=== PATIENT | female | born 1955 | race Hispanic/Latino ===

== ENCOUNTER 2017-04-15 11:16 | Emergency (ER) | payer MEDICAID ==
[2017-04-15 11:27] VITALS: BP 113/67; PULSE 66; RESP 20; TEMP 98; O2SAT 95
--- NOTE | 2017-04-15 11:31 | C.PDOC ---
History Of Present Illness 62 y/o female presents to ED requesting medication refill. Patient states she has an appointment at Clinic on 05/03/17 but has only 3 day supply left of medication. At ED patient is asymptomatic and denies any physical complaints. REQUESTING MED REFILL. PENDING CLINIC APPT 05/03 BUT HAS ONLY 3 DAYS LEFT. CURRENTLY ASYMPT. EXAM NEG Time Seen by Provider: 04/15/17 11:21 History Per: Patient History/Exam Limitations: no limitations Onset/Duration Of Symptoms: Days Current Symptoms Are (Timing): Gone Past Medical History Reviewed: Historical Data, Nursing Documentation, Vital Signs Vital Signs: Last Vital Signs Temp 98 F 04/15/17 11:26 Pulse 66 04/15/17 11:26 Resp 20 04/15/17 11:26 BP 113/67 04/15/17 11:26 Pulse Ox 95 04/15/17 12:59 - Medical History PMH: Back Problems, HTN Family History: States: No Known Family Hx - Social History Hx Tobacco Use: Yes (1 ppd) Hx Alcohol Use: Yes (socially) Hx Substance Use: No - Immunization History Hx Tetanus Toxoid Vaccination: No Hx Influenza Vaccination: Yes Hx Pneumococcal Vaccination: No Review Of Systems Except As Marked, All Systems Reviewed And Found Negative. Constitutional: Negative for: Fever, Chills Respiratory: Negative for: Cough, Shortness of Breath Gastrointestinal: Negative for: Nausea, Vomiting Skin: Negative for: Rash Neurological: Negative for: Weakness, Numbness Physical Exam - Physical Exam Appears: Non-toxic, No Acute Distress Skin: Normal Color, Warm, Dry, No Rash Head: Atraumatic, Normacephalic Eye(s): bilateral: Normal Inspection, EOMI Nose: Normal Oral Mucosa: Moist Throat: Normal, No Erythema Neck: Normal ROM, Supple Chest: Symmetrical Cardiovascular: Rhythm Regular Respiratory: No Rales, No Rhonchi, No Wheezing Neurological/Psych: Oriented x3, Normal Speech, Normal Cognition ED Course And Treatment O2 Sat by Pulse Oximetry: 95 (RA) Pulse Ox Interpretation: Normal Disposition Counseled Patient/Family Regarding: Diagnosis, Need For Followup, Rx Given - Disposition Referrals: [facility] [Outside] [facility] [Outside] Disposition: HOME/ ROUTINE Disposition Time: 11:29 Condition: GOOD Additional Instructions: FOLLOW UP CLINIC SCHEDULED Prescriptions: amLODIPine [Norvasc] 10 mg PO DAILY #30 tab Cyclobenzaprine [Flexeril] 5 mg PO TID #90 tab Metoprolol Tartrate [Lopressor] 50 mg PO BID #60 tab Instructions: Medicine Refill (ED) Forms: [employer] (Algerian) - Clinical Impression Clinical Impression: Medication refill - PA / TEST AND RESEARCH REACTOR OPERATOR / Resident Statement MD/DO has examined the patient and agrees with the treatment plan. - Scribe Statement The provider has reviewed the documentation as recorded by the Doyle Louise All medical record entries made by the Peymanibzeyad were at my direction and personally dictated by me. I have reviewed the chart and agree that the record accurately reflects my personal performance of the history, physical exam, medical decision making, and the department course for this patient. I have also personally directed, reviewed, and agree with the discharge instructions and disposition.
== END 2017-04-15 11:44 | disposition home or self-care (01) ==
LOC: C.ER 11:16
DX: Z76.0 Encounter for issue of repeat prescription (principal)

== ENCOUNTER 2017-05-24 15:16 | Emergency (ER) | payer MEDICAID ==
[2017-05-24 15:31] VITALS: O2SAT 96
--- NOTE | 2017-05-24 16:34 | C.PDOC ---
History Of Present Illness Lizzeth Vides is a 62 year old female who presents to the emergency department for refill of medication after she ran out yesterday. Patient denies any fever, chills, nausea or vomit. No further medical complaints. PMD: None provided. Time Seen by Provider: 05/24/17 16:16 Chief Complaint (Nursing): Med Refill History Per: Patient History/Exam Limitations: no limitations Onset/Duration Of Symptoms: Days (x1) Past Medical History Reviewed: Historical Data, Nursing Documentation, Vital Signs Vital Signs: Last Vital Signs Temp 98.0 F 05/24/17 16:41 Pulse 80 05/24/17 16:41 Resp 14 05/24/17 16:41 BP 121/71 05/24/17 16:41 Pulse Ox 96 05/24/17 16:41 - Medical History PMH: Back Problems, HTN Family History: States: Unknown Family Hx - Social History Hx Tobacco Use: Yes (1 ppd) Hx Alcohol Use: Yes (socially) Hx Substance Use: No - Immunization History Hx Tetanus Toxoid Vaccination: No Hx Influenza Vaccination: Yes Hx Pneumococcal Vaccination: No Review Of Systems Except As Marked, All Systems Reviewed And Found Negative. Constitutional: Negative for: Fever, Chills Gastrointestinal: Negative for: Nausea, Vomiting Physical Exam - Physical Exam Appears: Well, No Acute Distress Skin: Normal Color, Warm, Dry Eye(s): bilateral: Normal Inspection Neck: Normal, Normal ROM Respiratory: Normal Breath Sounds Back: Normal Inspection, No CVA Tenderness, No Vertebral Tenderness Extremity: Normal ROM, No Pedal Edema, No Deformity, No Swelling Neurological/Psych: Normal Speech, Normal Motor, Normal Sensation ED Course And Treatment O2 Sat by Pulse Oximetry: 96 (RA) Pulse Ox Interpretation: Normal Medical Decision Making Medical Decision Making: med refills Disposition Doctor Will See Patient In The: Office Counseled Patient/Family Regarding: Studies Performed, Diagnosis - Disposition Referrals: [facility] [Outside] [facility] [Outside] Disposition: HOME/ ROUTINE Disposition Time: 16:34 Condition: GOOD Additional Instructions: follow-up in our Clinic in 2-3 months for BP check and med refills. Prescriptions: amLODIPine [Norvasc] 10 mg PO DAILY #30 tab Cyclobenzaprine [Cyclobenzaprine HCl] 10 mg PO Q8H PRN #90 tab PRN Reason: Muscle Spasm Metoprolol Tartrate [Lopressor] 50 mg PO BID #60 tab Instructions: Medicine Refill (ED) Forms: [employer] (South Korean) - Clinical Impression Clinical Impression: Medication refill - Scribe Statement The provider has reviewed the documentation as recorded by the Doyle Stone Provider Attestation: All medical record entries made by the Peymanibe were at my direction and personally dictated by me. I have reviewed the chart and agree that the record accurately reflects my personal performance of the history, physical exam, medical decision making, and the department course for this patient. I have also personally directed, reviewed, and agree with the discharge instructions and disposition.
[2017-05-24 16:42] VITALS: BP 121/71; PULSE 80; RESP 14; TEMP 98
== END 2017-05-24 17:00 | disposition home or self-care (01) ==
LOC: C.ER 15:16
DX: Z76.0 Encounter for issue of repeat prescription (principal)

== ENCOUNTER 2018-03-15 15:48 | Emergency (ER) | payer MEDICAID ==
[2018-03-15 15:53] VITALS: BMI 27.8
--- NOTE | 2018-03-15 16:08 | C.PDOC ---
History Of Present Illness 63 year old female presents to the ED requesting a medication refill. Patient reports she took her last dose of medication yesterday. She has an appointment with her PMD in 2 days. Patient has no physical complaints. Time Seen by Provider: 03/15/18 15:59 Chief Complaint (Nursing): Med Refill History Per: Patient History/Exam Limitations: no limitations Past Medical History Reviewed: Historical Data, Nursing Documentation, Vital Signs Vital Signs: Last Vital Signs Temp 98.8 F 03/15/18 15:53 Pulse 105 H 03/15/18 15:53 Resp 18 03/15/18 16:40 BP 131/76 03/15/18 15:53 Pulse Ox 96 03/15/18 17:59 - Medical History PMH: Back Problems, HTN Surgical History: No Surg Hx Family History: States: No Known Family Hx - Social History Hx Tobacco Use: Yes (1 ppd) Hx Alcohol Use: Yes Hx Substance Use: No - Immunization History Hx Tetanus Toxoid Vaccination: No Hx Influenza Vaccination: No Hx Pneumococcal Vaccination: No Review Of Systems Except As Marked, All Systems Reviewed And Found Negative. Physical Exam - Physical Exam Appears: Non-toxic, No Acute Distress Skin: Warm, Dry, No Rash Head: Atraumatic Eye(s): bilateral: Normal Inspection Nose: Normal Oral Mucosa: Moist Neck: Normal ROM Chest: Symmetrical Extremity: Normal ROM Neurological/Psych: Oriented x3, Normal Speech Gait: Steady ED Course And Treatment O2 Sat by Pulse Oximetry: 96 (RA) Pulse Ox Interpretation: Normal Progress Note: Patient instructed to follow up with within 2-3 days. Return to ED if feel worse. Patient given Rx for Flexeril, Metoprolol, and Norvasc. Disposition - Disposition Referrals: Alfreda Rios MD [Staff Provider] - Disposition: HOME/ ROUTINE Disposition Time: 16:08 Condition: STABLE Additional Instructions: Follow up with within 2-3 days. Return to ED if feel worse. Prescriptions: Cyclobenzaprine [Flexeril] 5 mg PO TID #90 tab Metoprolol Tartrate 50 mg PO BID #60 tablet amLODIPine [Norvasc] 5 mg PO TID #60 tab Instructions: Medication Safety, Adult Forms: [employer] (Welsh) - Clinical Impression Clinical Impression: Medication refill - PA / PROPAGATION WORKER / Resident Statement MD/DO has reviewed & agrees with the documentation as recorded. - Scribe Statement The provider has reviewed the documentation as recorded by the Scribe Jessica Caraballo All medical record entries made by the Doyle were at my direction and personally dictated by me. I have reviewed the chart and agree that the record accurately reflects my personal performance of the history, physical exam, medical decision making, and the department course for this patient. I have also personally directed, reviewed, and agree with the discharge instructions and disposition.
[2018-03-15 16:22] VITALS: BP 131/76; PULSE 105; RESP 18; TEMP 98.8; O2SAT 96
== END 2018-03-15 16:40 | disposition home or self-care (01) ==
LOC: C.ER 15:48
DX: Z76.0 Encounter for issue of repeat prescription (principal)

== ENCOUNTER 2018-04-17 17:12 | Emergency (ER) | payer MEDICAID ==
[2018-04-17 17:13] VITALS: BMI 27.8
[2018-04-17 17:34] VITALS: BP 148/82; PULSE 76; RESP 18; TEMP 98.8; O2SAT 95
--- NOTE | 2018-04-17 17:43 | C.PDOC ---
History Of Present Illness 63 year old female presents to the ED requesting medication refills. Patient reports she was unable to schedule appointment for the clinic and has last doses today. Patient has no physical complaints. Time Seen by Provider: 04/17/18 17:37 Chief Complaint (Nursing): Med Refill History Per: Patient History/Exam Limitations: no limitations Onset/Duration Of Symptoms: Days Current Symptoms Are (Timing): Still Present Recent travel outside of the [place]: No Past Medical History Reviewed: Historical Data, Nursing Documentation, Vital Signs Vital Signs: Last Vital Signs Temp 98.8 F 04/17/18 17:31 Pulse 76 04/17/18 17:31 Resp 18 04/17/18 18:06 BP 148/82 04/17/18 17:31 Pulse Ox 95 04/17/18 18:33 - Medical History PMH: Back Problems, HTN Family History: States: Unknown Family Hx - Social History Hx Tobacco Use: Yes (1 ppd) Hx Alcohol Use: Yes (socially) Hx Substance Use: No - Immunization History Hx Tetanus Toxoid Vaccination: No Hx Influenza Vaccination: Yes Hx Pneumococcal Vaccination: No Review Of Systems Constitutional: Negative for: Fever, Chills Cardiovascular: Negative for: Chest Pain, Palpitations Respiratory: Negative for: Cough, Shortness of Breath Gastrointestinal: Negative for: Nausea, Vomiting, Abdominal Pain Physical Exam - Physical Exam Appears: Non-toxic Skin: Normal Color, Warm, Dry Head: Atraumatic, Normacephalic Eye(s): bilateral: Normal Inspection Neck: Normal ROM Chest: Symmetrical, No Tenderness Respiratory: No Stridor, No Wheezing Extremity: Bilateral: Atraumatic, Normal ROM Neurological/Psych: Oriented x3, Normal Speech ED Course And Treatment O2 Sat by Pulse Oximetry: 95 Medical Decision Making Medical Decision Making: Patient instructed to follow up with within 2-3 days. Return to ED if feel worse. Patient given Rx for Flexeril, Metoprolol, and Norvasc. Disposition Counseled Patient/Family Regarding: Diagnosis, Need For Followup, Rx Given - Disposition Referrals: Alfreda Rios MD [Staff Provider] - Disposition: HOME/ ROUTINE Disposition Time: 18:00 Condition: GOOD Additional Instructions: We have courteously refilled your medications for you. We give short supply and it is important that you follow up with your doctor or clinic for further care and medication refills. Prescriptions: amLODIPine [Norvasc] 10 mg PO DAILY #30 tab Cyclobenzaprine [Flexeril] 5 mg PO TID PRN #60 tab PRN Reason: Muscle Spasm Metoprolol Tartrate 50 mg PO BID #60 tablet Instructions: Medicines for High Blood Pressure Forms: [employer] (Anguillan) - POA Present On Arrival: None - Clinical Impression Clinical Impression: Medication refill - PA / MARKETING SYSTEMS ANALYST / Resident Statement MD/DO has reviewed & agrees with the documentation as recorded. - Scribe Statement The provider has reviewed the documentation as recorded by the Scribzeyad Tamez All medical record entries made by the Doyle were at my direction and personally dictated by me. I have reviewed the chart and agree that the record accurately reflects my personal performance of the history, physical exam, medical decision making, and the department course for this patient. I have also personally directed, reviewed, and agree with the discharge instructions and disposition.
== END 2018-04-17 18:07 | disposition home or self-care (01) ==
LOC: C.ER 17:12
DX: Z76.0 Encounter for issue of repeat prescription (principal); I10 Essential (primary) hypertension; F17.210 Nicotine dependence, cigarettes, uncomplicated

== ENCOUNTER 2018-06-03 13:48 | Observation (INO) | payer MEDICAID ==
[2018-06-03 13:48] VITALS: BMI 27.8
[2018-06-03] MEDS ORDERED: Sodium Chloride 0.9% 1,000 ML IV ONE (16:13)
[2018-06-03 16:21] LABS: BASO # 0.1 K/uL (0.0-0.2); BASO % 0.3 % (0.0-2.0); EOS % 0.1 % (0.0-4.0); HEMOGLOBIN 16.5 g/dL (11.0-16.0); LYMPH # 1.2 K/uL (1.0-4.3); LYMPH % 5.7 % (20.0-40.0); MEAN CELL VOLUME 91.6 fL (81.0-99.0); MEAN CORPUSCULAR HEMOGLOBIN 31.8 pg (27.0-31.0); MEAN CORPUSCULAR HGB CONC 34.7 g/dL (33.0-37.0); MONO # 0.8 K/uL (0.0-0.8); MONO % 3.6 % (0.0-10.0); NEUT # 19.6 K/uL (1.8-7.0); NEUT % 90.3 % (50.0-75.0); PLATELET COUNT 308 K/uL (130-400); RBC 5.19 Mil/uL (3.80-5.20); RED CELL DISTRIBUTION WIDTH 13.7 % (11.5-14.5); WHITE BLOOD COUNT 21.6 K/uL (4.8-10.8)
[2018-06-03] MEDS ORDERED: Iohexol 240 (50 ml) PO STA (16:25)
[2018-06-03] MEDS ORDERED: Piperacillin/Tazobact 3.375 gm 100 ML IV STA (16:29)
[2018-06-03] MEDS ORDERED: Sodium Chloride 0.9% 1,000 ML ONE (16:30)
[2018-06-03 16:37] LABS: ALB/GLOB RATIO 1.4 (1.0-2.1); ALT/SGPT 26 U/L (9-52); AST/SGOT 31 U/L (14-36); BLOOD UREA NITROGEN 25 mg/dL (7-17); GFR NON-AFRICAN AMERICAN 56; LIPASE 86 U/L (23-300)
[2018-06-03 16:40] LABS: SQUAMOUS EPITHIAL 10 /hpf (0-5); URINE BILIRUBIN 1+ (NEGATIVE); URINE BLOOD 2+ (NEGATIVE); URINE CLARITY Hazy (Clear); URINE COLOR Amber (YELLOW); URINE GLUCOSE (UA) NORMAL (Normal); URINE HYALINE CAST >20 /lpf (0-2); URINE LEUKOCYTE ESTERASE 1+ Leu/uL (Negative); URINE PROTEIN 2+ mg/dL (NEGATIVE)
[2018-06-03] MEDS ORDERED: Iodixanol 320 MG/ML 100 ML BOTTLE IV ONE (17:14)
[2018-06-03] MEDS ORDERED: Piperacillin/Tazobact 3.375 gm 100 ML IVPB ONE (17:22)
[2018-06-03 17:34] LABS: BANDS 2 % (0-2); LYMPHOCYTE 3 % (20-40); MONOCYTE 5 % (0-10); NEUTROPHIL 90 % (50-75); PLATELET ESTIMATE NORMAL (NORMAL); TOTAL CELLS COUNTED 100
[2018-06-03 17:40] LABS: MICROCYTOSIS SLIGHT
--- NOTE | 2018-06-03 17:44 | C.PDOC ---
History Of Present Illness 63 year old female with PMH HTN presents to the ED for evaluation of left-sided abdominal pain associated with nausea and vomiting since yesterday. Pt tried peptobismol without relief. Pt admits to h/o peptic ulcer 30 yrs ago . No h/o colonoscopy. Patient denies fever, chills, dysuria, hematuria, melena, weight loss, sick contacts. Time Seen by Provider: 06/03/18 15:17 Chief Complaint (Nursing): Abdominal Pain History Per: Patient History/Exam Limitations: no limitations Onset/Duration Of Symptoms: Hrs Current Symptoms Are (Timing): Still Present Radiation Of Pain To:: None Quality Of Discomfort: "Pain" Associated Symptoms: Nausea, Vomiting. denies: Fever, Chills, Urinary Symptoms Past Medical History Reviewed: Historical Data, Nursing Documentation, Vital Signs Vital Signs: Last Vital Signs Temp 98.6 F 06/03/18 14:34 Pulse 77 06/03/18 14:34 Resp 20 06/03/18 14:34 BP Pulse Ox 98 06/03/18 14:34 - Medical History PMH: Back Problems, HTN Surgical History: No Surg Hx Family History: States: Unknown Family Hx - Social History Hx Tobacco Use: Yes (1 ppd) Hx Alcohol Use: Yes Hx Substance Use: No - Immunization History Hx Tetanus Toxoid Vaccination: No Hx Influenza Vaccination: No Hx Pneumococcal Vaccination: No Review Of Systems Constitutional: Negative for: Fever, Chills Gastrointestinal: Positive for: Nausea, Vomiting, Abdominal Pain (left-sided ) Genitourinary: Negative for: Dysuria, Frequency, Hematuria Physical Exam - Physical Exam Appears: Non-toxic, Other (appears uncomfortable, actively vomiting ) Skin: Normal Color, Warm, Dry Head: Atraumatic, Normacephalic Eye(s): bilateral: Normal Inspection, EOMI Nose: Normal Oral Mucosa: Moist Neck: Normal ROM, Supple Chest: Symmetrical, No Deformity, No Tenderness Cardiovascular: Rhythm Regular Respiratory: Normal Breath Sounds, No Rales, No Rhonchi, No Wheezing Gastrointestinal/Abdominal: Soft, Tenderness (left-sided ), No Guarding, No Rebound Extremity: Normal ROM, Capillary Refill (less than 2 seconds ) Neurological/Psych: Oriented x3, Normal Speech, Normal Cognition ED Course And Treatment - Laboratory Results Result Diagrams: 06/04/18 13:55 06/04/18 08:07 O2 Sat by Pulse Oximetry: 98 (on RA) Pulse Ox Interpretation: Normal - CT Scan/US CT A/P Other Rad Studies (CT/US): Read By Radiologist, Radiology Report Reviewed CT/US Interpretation: PROCEDURE: CT Abdomen and Pelvis with contrast. HISTORY: pain. COMPARISON: None available. TECHNIQUE: Contrast dose: 100 mL Vi sipaque 320. Radiation dose: Total exam DLP = 713.16 mGy-cm. This CT exam was performed using one or more of the following dose reduction techniques: Automated exposure control, adjustment of the mA and/or kV according to patient size, and/or use of iterative reconstruction technique. FINDINGS: LOWER THORAX: Minimal atelectasis, lingula. No visible pleural effusion or pneumothorax. Small hiatal hernia/distal esophageal wall thickening. LIVER: Unremarkable. GALLBLADDER AND BILE DUCTS: Unremarkable. PANCREAS: Unremarkable. SPLEEN: Unremarkable. ADRENALS: Unremarkable. KIDNEYS AND URETERS: The kidneys enhance symmetrically. No hydronephrosis or obstructing calculus identified. VASCULATURE: Atherosclerotic calcifications of the aorta. No aortic aneurysm. BOWEL: Stomach is nondistended. Severe gastric wall thickening. Appearance worrisome for gastritis. Lack of oral contrast limits evaluation for bowel pathology. Bowel loops appear within normal limits of caliber without evidence of obstruction. Diverticulosis without CT evidence of acute diverticulitis. APPENDIX: The appendix appears within normal limits of caliber. No secondary signs of acute appendicitis. PERITONEUM: No significant free fluid. No definite free air. LYMPH NODES: No bulky adenopathy identified. BLADDER: Under distention of the urinary bladder limits evaluation. REPRODUCTIVE: The uterus is present. BONES: Degenerative changes of the spine. OTHER FINDINGS: None. IMPRESSION: Severe gastric wall thickening; appearance worrisome for gastritis. Neoplasm cannot be excluded. Correlate clinically. Small hiatal hernia/distal esophageal wall thickening. Minimal atelectasis, partially imaged lingula. Diverticulosis without CT evidence of acute diverticulitis. Progress Note: Bloodwork, urinalysis, CT A/P ordered and reviewed. Toradol IVP, Zofran IVP, Protonix IVP, Zosyn IVP, and IV Fluids given. Case discussed with Dr Palumbo, agreed upon plan and admission. Case discussed with Dr Abreu, agreed upon admission, instructs GI consult with Dr Szymanski. Disposition - Disposition Disposition: HOSPITALIZED Disposition Time: 17:00 Condition: STABLE - Clinical Impression Clinical Impression: Leukocytosis, Gastritis - PA / PRODUCT CONSULTANT / Resident Statement MD/DO has reviewed & agrees with the documentation as recorded. - Scribe Statement The provider has reviewed the documentation as recorded by the Scribe (Christiana Abreu) All medical record entries made by the Scribe were at my direction and personally dictated by me. I have reviewed the chart and agree that the record accurately reflects my personal performance of the history, physical exam, medical decision making, and the department course for this patient. I have also personally directed, reviewed, and agree with the discharge instructions and disposition.
[2018-06-03 17:47] LABS: LARGE PLATELETS PRESENT
--- NOTE | 2018-06-03 17:47 | CT ---
Date of service: 06/03/2018 PROCEDURE: CT Abdomen and Pelvis with contrast HISTORY: pain COMPARISON: None available. TECHNIQUE: Contrast dose: 100 mL Visipaque 320 Radiation dose: Total exam DLP = 713.16 mGy-cm. This CT exam was performed using one or more of the following dose reduction techniques: Automated exposure control, adjustment of the mA and/or kV according to patient size, and/or use of iterative reconstruction technique. FINDINGS: LOWER THORAX: Minimal atelectasis, lingula. No visible pleural effusion or pneumothorax. Small hiatal hernia/distal esophageal wall thickening. LIVER: Unremarkable. GALLBLADDER AND BILE DUCTS: Unremarkable. PANCREAS: Unremarkable. SPLEEN: Unremarkable. ADRENALS: Unremarkable. KIDNEYS AND URETERS: The kidneys enhance symmetrically. No hydronephrosis or obstructing calculus identified. VASCULATURE: Atherosclerotic calcifications of the aorta. No aortic aneurysm. BOWEL: Stomach is nondistended. Severe gastric wall thickening. Appearance worrisome for gastritis. Lack of oral contrast limits evaluation for bowel pathology. Bowel loops appear within normal limits of caliber without evidence of obstruction. Diverticulosis without CT evidence of acute diverticulitis. APPENDIX: The appendix appears within normal limits of caliber. No secondary signs of acute appendicitis. PERITONEUM: No significant free fluid. No definite free air. LYMPH NODES: No bulky adenopathy identified. BLADDER: Under distention of the urinary bladder limits evaluation. REPRODUCTIVE: The uterus is present. BONES: Degenerative changes of the spine. OTHER FINDINGS: None. IMPRESSION: Severe gastric wall thickening; appearance worrisome for gastritis. Neoplasm cannot be excluded. Correlate clinically. Small hiatal hernia/distal esophageal wall thickening. Minimal atelectasis, partially imaged lingula. Diverticulosis without CT evidence of acute diverticulitis.
[2018-06-03] MEDS ORDERED: metroNIDAZOLE IV 500 mg/100 ml 500 MG/100 ML BAG ONE (21:14)
--- NOTE | 2018-06-03 21:36 | CP.PCM.HP ---
Past Patient History - Infectious Disease Hx of Infectious Diseases: None - Past Social History Smoking Status: Heavy Smoker > 10 Cigarettes Daily - CARDIAC Hx Hypertension: Yes - MUSCULOSKELETAL/RHEUMATOLOGICAL Hx Musculoskeletal Disorders: Yes - PSYCHIATRIC Hx Substance Use: No - SURGICAL HISTORY Hx Surgeries: No - ANESTHESIA Hx Anesthesia: No Hx Anesthesia Reactions: No Meds Allergies/Adverse Reactions: Allergies Allergy/AdvReac Type Severity Reaction Status Date / Time No Known Allergies Allergy Verified 06/03/18 14:37 Results - Vital Signs Recent Vital Signs: Last Vital Signs Temp 98.7 F 06/03/18 20:45 Pulse 81 06/03/18 20:45 Resp 16 06/03/18 20:45 BP 146/71 06/03/18 20:45 Pulse Ox 94 L 06/03/18 20:45 - Labs Result Diagrams: 06/03/18 16:18 06/03/18 16:18 Labs: Laboratory Results - last 24 hr 06/03/18 06/03/18 06/03/18 16:18 16:18 16:31 WBC 21.6 H D RBC 5.19 Hgb 16.5 H Hct 47.6 H MCV 91.6 MCH 31.8 H MCHC 34.7 RDW 13.7 Plt Count 308 MPV 8.0 Neut % (Auto) 90.3 H Lymph % (Auto) 5.7 L [place] % (Auto) 3.6 Eos % (Auto) 0.1 Baso % (Auto) 0.3 Neut # (Auto) 19.6 H Lymph # (Auto) 1.2 [place] # (Auto) 0.8 Eos # (Auto) 0.0 Baso # (Auto) 0.1 Neutrophils % (Manual) 90 H Band Neutrophils % 2 Lymphocytes % (Manual) 3 L Monocytes % (Manual) 5 Platelet Estimate Normal Large Platelets Present Microcytosis (manual) Slight Sodium 137 Potassium 3.4 L Chloride 85 L Carbon Dioxide 37 H Anion Gap 18 BUN 25 H Creatinine 1.0 Est GFR ( Amer) > 60 Est GFR (Non-Af Amer) 56 Random Glucose 123 H Calcium 10.0 Total Bilirubin 0.6 AST 31 ALT 26 Alkaline Phosphatase 98 Total Protein 8.5 H Albumin 5.0 Globulin 3.5 Albumin/Globulin Ratio 1.4 Lipase 86 Urine Color Mira Urine Clarity Hazy Urine pH 5.0 Ur Specific [place] 1.025 Urine Protein 2+ H Urine Glucose (UA) Normal Urine Ketones Negative Urine Blood 2+ H Urine Nitrate Negative Urine Bilirubin 1+ H Urine Urobilinogen 2.0 H Ur Leukocyte Esterase 1+ H Urine WBC (Auto) 14 H Urine RBC (Auto) 24 H Ur Squamous Epith Cells 10 H Hyaline Casts >20 H
[2018-06-03] MEDS ORDERED: metroNIDAZOLE IV 500 mg/100 ml 500 MG/100 ML BAG IVPB SCH (22:00)
[2018-06-04] MEDS: Piperacill/Tazo 3.375gm in Dex 3.375 GM/50 ML BAG IVPB SCH ×6 (00:06→23:03)
[2018-06-04] MEDS ORDERED: Ciprofloxacin 400mg/200ml D5W 400 MG/200 ML BAG IVPB SCH (06:00)
[2018-06-04 08:23] LABS: EOS # 0.1 K/uL (0.0-0.7); MEAN PLATELET VOLUME 8.3 fL (7.2-11.7)
[2018-06-04 08:33] LABS: EOS % 0.6 % (0.0-4.0); LYMPH # 0.8 K/uL (1.0-4.3); LYMPH % 5.1 % (20.0-40.0); MEAN CELL VOLUME 91.2 fL (81.0-99.0); MEAN CORPUSCULAR HEMOGLOBIN 31.7 pg (27.0-31.0); MEAN CORPUSCULAR HGB CONC 34.8 g/dL (33.0-37.0); MONO # 0.2 K/uL (0.0-0.8); MONO % 1.3 % (0.0-10.0); NEUT # 14.4 K/uL (1.8-7.0); PLATELET COUNT 227 K/uL (130-400); RBC 4.42 Mil/uL (3.80-5.20); RED CELL DISTRIBUTION WIDTH 13.3 % (11.5-14.5); WHITE BLOOD COUNT 15.5 K/uL (4.8-10.8)
[2018-06-04 09:37] LABS: EOSINOPHIL 1 % (0-4); LYMPHOCYTE 6 % (20-40); MONOCYTE 1 % (0-10); NEUTROPHIL 92 % (50-75); PLATELET ESTIMATE NORMAL (NORMAL); TOTAL CELLS COUNTED 100
[2018-06-04 09:41] LABS: ERYTHROCYTE SEDIMENTATION RATE 25 mm/hr (0-20)
--- NOTE | 2018-06-04 09:48 | CP.PCM.CON ---
<Darren Granados - Last Filed: 06/04/18 11:46> History of Present Illness - History of Present Illness History of Present Illness: PGY6 GI Fellow Consult Note Patient is a 63yo female with PMHx significant for HTN, chronic back pain, PUD with gastric ulcer in the who presented to the hospital with 3 days of abdominal pain, nausea and vomiting. She states pain started suddenly on Saturday. Episodes were mild initially but have progressively worsened in the following days. She presented to the ED when pain became more severe and vomiting had not ceased. She denies any rectal bleeding, melena, hematemesis, fever, chills, weight loss, sick contacts, recent travel. Does admit to frequent NSAID use with regular Advil PM usage before bed for the last 4-5 weeks. In the ED, patient had CT scan which shows significant gastric wall thickening consistent with gastritis. Lab work with leukocytosis/hemoconcentration. 12 system ROS performed and negative except where stated PMHx: See HPI PSHx: Discussed with patient and she denies FHx: Sister - PBC Mother - Scleroderma Social: Denies tobacco, EtOH or illicit drug use Endo: EGD in with gastric ulcer noted Past Patient History - Infectious Disease Hx of Infectious Diseases: None - Past Social History Smoking Status: Heavy Smoker > 10 Cigarettes Daily - CARDIAC Hx Hypertension: Yes - MUSCULOSKELETAL/RHEUMATOLOGICAL Hx Musculoskeletal Disorders: Yes - PSYCHIATRIC Hx Substance Use: No - SURGICAL HISTORY Hx Surgeries: No - ANESTHESIA Hx Anesthesia: No Hx Anesthesia Reactions: No Meds Allergies/Adverse Reactions: Allergies Allergy/AdvReac Type Severity Reaction Status Date / Time No Known Allergies Allergy Verified 06/03/18 14:37 - Medications Medications: Current Medications Amlodipine Besylate (Norvasc) 10 mg PO Q24H [facility] Piperacillin Sod/Tazobactam Sod (Zosyn 3.375 Gm Iv Premix) 3.375 gm in 50 mls @ 100 mls/hr IVPB Q6H [facility]; Protocol Last Admin: 06/04/18 06:05 Dose: 100 mls/hr Metronidazole (Flagyl) 500 mg in 100 mls @ 100 mls/hr IVPB Q8 [facility]; Protocol Metoprolol Tartrate (Lopressor) 50 mg PO 0600,1200 [facility] Last Admin: 06/04/18 06:05 Dose: 50 mg Ondansetron HCl (Zofran Inj) 4 mg IVP Q4H PRN PRN Reason: Nausea/Vomiting Last Admin: 06/04/18 02:00 Dose: 4 mg Physical Exam - Constitutional Appears: Non-toxic, No Acute Distress - Eye Exam Eye Exam: EOMI, PERRL - ENT Exam ENT Exam: Mucous Membranes Moist - Respiratory Exam Respiratory Exam: Clear to Auscultation Bilateral. absent: Rales, Rhonchi, Wheezes - Cardiovascular Exam Cardiovascular Exam: RRR, +S1, +S2 - GI/Abdominal Exam GI & Abdominal Exam: Normal Bowel Sounds, Soft, Tenderness (epigastric). absent: Distended, Firm, Guarding, Organomegaly, Rigid - Extremities Exam Extremities exam: Positive for: normal inspection. Negative for: pedal edema - Neurological Exam Neurological exam: Alert, Oriented x3 - Psychiatric Exam Psychiatric exam: Normal Affect, Normal Mood - Skin Skin Exam: Dry, Warm Results - Vital Signs Recent Vital Signs: Last Vital Signs Temp 98.3 F 06/04/18 08:00 Pulse 72 06/04/18 08:00 Resp 20 06/04/18 08:00 BP 136/69 06/04/18 08:00 Pulse Ox 97 06/04/18 08:00 - Labs Result Diagrams: 06/04/18 08:07 06/04/18 08:07 Labs: Laboratory Results - last 24 hr 06/03/18 06/03/18 06/03/18 16:18 16:18 16:31 WBC 21.6 H D RBC 5.19 Hgb 16.5 H Hct 47.6 H MCV 91.6 MCH 31.8 H MCHC 34.7 RDW 13.7 Plt Count 308 MPV 8.0 Neut % (Auto) 90.3 H Lymph % (Auto) 5.7 L [place] % (Auto) 3.6 Eos % (Auto) 0.1 Baso % (Auto) 0.3 Neut # (Auto) 19.6 H Lymph # (Auto) 1.2 [place] # (Auto) 0.8 Eos # (Auto) 0.0 Baso # (Auto) 0.1 Neutrophils % (Manual) 90 H Band Neutrophils % 2 Lymphocytes % (Manual) 3 L Monocytes % (Manual) 5 Eosinophils % (Manual) Platelet Estimate Normal Large Platelets Present RBC Morphology Microcytosis (manual) Slight ESR Sodium 137 Potassium 3.4 L Chloride 85 L Carbon Dioxide 37 H Anion Gap 18 BUN 25 H Creatinine 1.0 Est GFR ( Amer) > 60 Est GFR (Non-Af Amer) 56 Random Glucose 123 H Calcium 10.0 Total Bilirubin 0.6 AST 31 ALT 26 Alkaline Phosphatase 98 Total Protein 8.5 H Albumin 5.0 Globulin 3.5 Albumin/Globulin Ratio 1.4 Lipase 86 Urine Color [place] Urine Clarity Hazy Urine pH 5.0 Ur Specific [place] 1.025 Urine Protein 2+ H Urine Glucose (UA) Normal Urine Ketones Negative Urine Blood 2+ H Urine Nitrate Negative Urine Bilirubin 1+ H Urine Urobilinogen 2.0 H Ur Leukocyte Esterase 1+ H Urine WBC (Auto) 14 H Urine RBC (Auto) 24 H Ur Squamous Epith Cells 10 H Hyaline Casts >20 H 06/04/18 08:07 WBC 15.5 H RBC 4.42 Hgb 14.0 D Hct 40.3 MCV 91.2 MCH 31.7 H MCHC 34.8 RDW 13.3 Plt Count 227 MPV 8.3 Neut % (Auto) 93.0 H Lymph % (Auto) 5.1 L [place] % (Auto) 1.3 Eos % (Auto) 0.6 Baso % (Auto) 0.0 Neut # (Auto) 14.4 H Lymph # (Auto) 0.8 L [place] # (Auto) 0.2 Eos # (Auto) 0.1 Baso # (Auto) 0.0 Neutrophils % (Manual) 92 H Band Neutrophils % Lymphocytes % (Manual) 6 L Monocytes % (Manual) 1 Eosinophils % (Manual) 1 Platelet Estimate Normal Large Platelets RBC Morphology Normal Microcytosis (manual) ESR 25 H Sodium Potassium Chloride Carbon Dioxide Anion Gap BUN Creatinine Est GFR ( Amer) Est GFR (Non-Af Amer) Random Glucose Calcium Total Bilirubin AST ALT Alkaline Phosphatase Total Protein Albumin Globulin Albumin/Globulin Ratio Lipase Urine Color Urine Clarity Urine pH Ur Specific [place] Urine Protein Urine Glucose (UA) Urine Ketones Urine Blood Urine Nitrate Urine Bilirubin Urine Urobilinogen Ur Leukocyte Esterase Urine WBC (Auto) Urine RBC (Auto) Ur Squamous Epith Cells Hyaline Casts Assessment & Plan - Assessment and Plan (Free Text) Assessment: Patient is a 63yo female with PMHx significant for HTN, chronic back pain, PUD with gastric ulcer in the who presented to the hospital with 3 days of abdominal pain, nausea and vomiting -Abdominal pain -Nausea/vomiting -Gastroenteritis suspected Plan: -Given findings on physical exam, H/O NSAID use and CT, recommend EGD to evaluate upper GI tract -Maintain NPO -Hold Lovenox - Date & Time Date: 06/04/18 Time: 06:45 <Zechariah Szymanski - Last Filed: 06/04/18 14:20> Meds - Medications Medications: Current Medications Amlodipine Besylate (Norvasc) 10 mg PO Q24H [facility] Piperacillin Sod/Tazobactam Sod (Zosyn 3.375 Gm Iv Premix) 3.375 gm in 50 mls @ 100 mls/hr IVPB Q6H [facility]; Protocol Last Admin: 06/04/18 11:32 Dose: 100 mls/hr Metronidazole (Flagyl) 500 mg in 100 mls @ 100 mls/hr IVPB Q8 [facility]; Protocol Metoprolol Tartrate (Lopressor) 50 mg PO 0600,1200 [facility] Last Admin: 06/04/18 12:55 Dose: 50 mg Ondansetron HCl (Zofran Inj) 4 mg IVP Q4H PRN PRN Reason: Nausea/Vomiting Last Admin: 06/04/18 02:00 Dose: 4 mg Results - Vital Signs Recent Vital Signs: Last Vital Signs Temp 98.3 F 06/04/18 08:00 Pulse 79 06/04/18 12:53 Resp 20 06/04/18 08:00 BP 121/72 06/04/18 12:53 Pulse Ox 97 06/04/18 08:00 - Labs Result Diagrams: 06/04/18 13:55 06/04/18 08:07 Labs: Laboratory Results - last 24 hr 06/03/18 06/03/18 06/03/18 16:18 16:18 16:31 WBC 21.6 H D RBC 5.19 Hgb 16.5 H Hct 47.6 H MCV 91.6 MCH 31.8 H MCHC 34.7 RDW 13.7 Plt Count 308 MPV 8.0 Neut % (Auto) 90.3 H Lymph % (Auto) 5.7 L [place] % (Auto) 3.6 Eos % (Auto) 0.1 Baso % (Auto) 0.3 Neut # (Auto) 19.6 H Lymph # (Auto) 1.2 [place] # (Auto) 0.8 Eos # (Auto) 0.0 Baso # (Auto) 0.1 Neutrophils % (Manual) 90 H Band Neutrophils % 2 Lymphocytes % (Manual) 3 L Monocytes % (Manual) 5 Eosinophils % (Manual) Platelet Estimate Normal Large Platelets Present RBC Morphology Microcytosis (manual) Slight ESR Sodium 137 Potassium 3.4 L Chloride 85 L Carbon Dioxide 37 H Anion Gap 18 BUN 25 H Creatinine 1.0 Est GFR ( Amer) > 60 Est GFR (Non-Af Amer) 56 Random Glucose 123 H Calcium 10.0 Total Bilirubin 0.6 AST 31 ALT 26 Alkaline Phosphatase 98 Total Protein 8.5 H Albumin 5.0 Globulin 3.5 Albumin/Globulin Ratio 1.4 Lipase 86 Urine Color [place] Urine Clarity Hazy Urine pH 5.0 Ur Specific [place] 1.025 Urine Protein 2+ H Urine Glucose (UA) Normal Urine Ketones Negative Urine Blood 2+ H Urine Nitrate Negative Urine Bilirubin 1+ H Urine Urobilinogen 2.0 H Ur Leukocyte Esterase 1+ H Urine WBC (Auto) 14 H Urine RBC (Auto) 24 H Ur Squamous Epith Cells 10 H Hyaline Casts >20 H 06/04/18 06/04/18 06/04/18 08:07 08:07 13:55 WBC 15.5 H 14.3 H RBC 4.42 4.13 Hgb 14.0 D 13.3 Hct 40.3 37.9 MCV 91.2 91.6 MCH 31.7 H 32.1 H MCHC 34.8 35.0 RDW 13.3 13.5 Plt Count 227 216 MPV 8.3 8.2 Neut % (Auto) 93.0 H Lymph % (Auto) 5.1 L [place] % (Auto) 1.3 Eos % (Auto) 0.6 Baso % (Auto) 0.0 Neut # (Auto) 14.4 H Lymph # (Auto) 0.8 L [place] # (Auto) 0.2 Eos # (Auto) 0.1 Baso # (Auto) 0.0 Neutrophils % (Manual) 92 H Band Neutrophils % Lymphocytes % (Manual) 6 L Monocytes % (Manual) 1 Eosinophils % (Manual) 1 Platelet Estimate Normal Large Platelets RBC Morphology Normal Microcytosis (manual) ESR 25 H Sodium 133 Potassium 3.5 L Chloride 94 L Carbon Dioxide 27 Anion Gap 17 BUN 22 H Creatinine 0.8 Est GFR ( Amer) > 60 Est GFR (Non-Af Amer) > 60 Random Glucose 112 H Calcium 9.3 Total Bilirubin 0.7 AST 47 H D ALT 24 Alkaline Phosphatase 82 Total Protein 6.8 Albumin 4.0 Globulin 2.8 Albumin/Globulin Ratio 1.4 Lipase Urine Color Urine Clarity Urine pH Ur Specific [place] Urine Protein Urine Glucose (UA) Urine Ketones Urine Blood Urine Nitrate Urine Bilirubin Urine Urobilinogen Ur Leukocyte Esterase Urine WBC (Auto) Urine RBC (Auto) Ur Squamous Epith Cells Hyaline Casts Attending/Attestation - Attestation I have personally seen and examined this patient.: Yes I have fully participated in the care of the patient.: Yes I have reviewed all pertinent clinical information: Yes Notes (Text): 06/04/18 14:15 I have seen and examined patient with GI fellow. Agree with above documentation with the following additions. In brief, this is a 63 year old female with history of HTN, chronic back pain with recent NSAID use, PUD who presents to hospital with complaint of abdominal pain. Symptoms began 3 days ago and she reports sharp epigastric pain associated with nausea, vomiting. She denies diarrhea, fever/chills, weight loss, change in bowel habits, or rectal bleeding. She does report daily NSAID use for the past month, once daily at bedtime. She had an EGD in the , no prior colonoscopy. Review of vitals from today are normal. HTN Chronic back pain Abdominal pain CT imaging reviewed by me showing thickened gastric wall - NPO - Continue with PPI therapy - Given progressive abdominal pain in setting of regular NSAID use, abnormal CT imaging, and prior h/o PUD, will plan for EGD for further evaluation - Further management following endoscopic examination - Cigarette smoking cessation counseling - NSAID avoidance
[2018-06-04] MEDS ORDERED: Enoxaparin 40 mg Syringe SC SCH (10:00)
[2018-06-04 11:02] LABS: ALB/GLOB RATIO 1.4 (1.0-2.1); ALT/SGPT 24 U/L (9-52); AST/SGOT 47 U/L (14-36); BLOOD UREA NITROGEN 22 mg/dL (7-17); CALCIUM 9.3 mg/dl (8.6-10.4); GFR NON-AFRICAN AMERICAN > 60
[2018-06-04 13:59] LABS: HEMOGLOBIN 13.3 g/dL (11.0-16.0); MEAN CELL VOLUME 91.6 fL (81.0-99.0); MEAN CORPUSCULAR HEMOGLOBIN 32.1 pg (27.0-31.0); MEAN PLATELET VOLUME 8.2 fL (7.2-11.7); RBC 4.13 Mil/uL (3.80-5.20); RED CELL DISTRIBUTION WIDTH 13.5 % (11.5-14.5); WHITE BLOOD COUNT 14.3 K/uL (4.8-10.8)
[2018-06-04] MEDS ORDERED: Propofol 10 mg/ml Inj (20 ML) ONE ×3 (14:17→14:48)
[2018-06-04] MEDS ORDERED: ePHEDrine 50 mg/ml Inj ONE (14:48)
[2018-06-04] MEDS: metroNIDAZOLE IV 500 mg/100 ml 500 MG/100 ML BAG IVPB SCH ×2 (15:45→21:37)
[2018-06-04 15:59] VITALS: RESP 20
[2018-06-04] MEDS: Pantoprazole 80 MG in Sodium Chloride 0.9% 100 ML IVPB SCH (16:18)
[2018-06-04] MEDS ORDERED: Potassium Chloride 10 mEq ER Tab PO ONE (18:00)
--- NOTE | 2018-06-04 20:46 | CP.PCM.PN ---
Subjective - Date & Time of Evaluation Date of Evaluation: 06/04/18 Time of Evaluation: 11:30 - Subjective Subjective: clinically same Objective - Vital Signs/Intake and Output Vital Signs (last 24 hours): Temp Pulse Resp BP Pulse Ox 97.4 F L 73 20 138/71 95 06/04/18 15:57 06/04/18 18:08 06/04/18 15:57 06/04/18 18:08 06/04/18 15:57 Intake and Output: 06/04/18 06/05/18 18:59 06:59 Intake Total 500 Balance 500 - Medications Medications: Current Medications Amlodipine Besylate (Norvasc) 10 mg PO Q24H [facility] Last Admin: 06/04/18 18:17 Dose: Not Given Piperacillin Sod/Tazobactam Sod (Zosyn 3.375 Gm Iv Premix) 3.375 gm in 50 mls @ 100 mls/hr IVPB Q6H [facility]; Protocol Last Admin: 06/04/18 18:30 Dose: 100 mls/hr Metronidazole (Flagyl) 500 mg in 100 mls @ 100 mls/hr IVPB Q8 [facility]; Protocol Last Admin: 06/04/18 15:45 Dose: 100 mls/hr Pantoprazole Sodium 80 mg/ (Sodium Chloride) 100 mls @ 10 mls/hr IVPB .Q10H [facility] Last Admin: 06/04/18 16:18 Dose: 10 mls/hr Metoprolol Tartrate (Lopressor) 50 mg PO 0600,1200 [facility] Last Admin: 06/04/18 12:55 Dose: 50 mg Ondansetron HCl (Zofran Inj) 4 mg IVP Q4H PRN PRN Reason: Nausea/Vomiting Last Admin: 06/04/18 02:00 Dose: 4 mg - Labs Labs: 06/04/18 13:55 06/04/18 08:07
--- NOTE | 2018-06-04 21:20 | CP.PCM.CON ---
Past Patient History - Infectious Disease Hx of Infectious Diseases: None - Past Social History Smoking Status: Heavy Smoker > 10 Cigarettes Daily - CARDIAC Hx Hypertension: Yes - MUSCULOSKELETAL/RHEUMATOLOGICAL Hx Musculoskeletal Disorders: Yes - PSYCHIATRIC Hx Substance Use: No - SURGICAL HISTORY Hx Surgeries: No - ANESTHESIA Hx Anesthesia: No Hx Anesthesia Reactions: No Meds Allergies/Adverse Reactions: Allergies Allergy/AdvReac Type Severity Reaction Status Date / Time No Known Allergies Allergy Verified 06/03/18 14:37 - Medications Medications: Current Medications Amlodipine Besylate (Norvasc) 10 mg PO Q24H [facility] Last Admin: 06/04/18 18:17 Dose: Not Given Piperacillin Sod/Tazobactam Sod (Zosyn 3.375 Gm Iv Premix) 3.375 gm in 50 mls @ 100 mls/hr IVPB Q6H [facility]; Protocol Last Admin: 06/04/18 18:30 Dose: 100 mls/hr Metronidazole (Flagyl) 500 mg in 100 mls @ 100 mls/hr IVPB Q8 [facility]; Protocol Last Admin: 06/04/18 15:45 Dose: 100 mls/hr Pantoprazole Sodium 80 mg/ (Sodium Chloride) 100 mls @ 10 mls/hr IVPB .Q10H [facility] Last Admin: 06/04/18 16:18 Dose: 10 mls/hr Metoprolol Tartrate (Lopressor) 50 mg PO 0600,1200 [facility] Last Admin: 06/04/18 12:55 Dose: 50 mg Ondansetron HCl (Zofran Inj) 4 mg IVP Q4H PRN PRN Reason: Nausea/Vomiting Last Admin: 06/04/18 02:00 Dose: 4 mg Results - Vital Signs Recent Vital Signs: Last Vital Signs Temp 97.4 F L 06/04/18 15:57 Pulse 73 06/04/18 18:08 Resp 20 06/04/18 15:57 BP 138/71 06/04/18 18:08 Pulse Ox 95 06/04/18 15:57 - Labs Result Diagrams: 06/04/18 13:55 06/04/18 08:07 Labs: Laboratory Results - last 24 hr 06/04/18 06/04/18 06/04/18 08:07 08:07 13:55 WBC 15.5 H 14.3 H RBC 4.42 4.13 Hgb 14.0 D 13.3 Hct 40.3 37.9 MCV 91.2 91.6 MCH 31.7 H 32.1 H MCHC 34.8 35.0 RDW 13.3 13.5 Plt Count 227 216 MPV 8.3 8.2 Neut % (Auto) 93.0 H Lymph % (Auto) 5.1 L [place] % (Auto) 1.3 Eos % (Auto) 0.6 Baso % (Auto) 0.0 Neut # (Auto) 14.4 H Lymph # (Auto) 0.8 L [place] # (Auto) 0.2 Eos # (Auto) 0.1 Baso # (Auto) 0.0 Neutrophils % (Manual) 92 H Lymphocytes % (Manual) 6 L Monocytes % (Manual) 1 Eosinophils % (Manual) 1 Platelet Estimate Normal RBC Morphology Normal ESR 25 H Sodium 133 Potassium 3.5 L Chloride 94 L Carbon Dioxide 27 Anion Gap 17 BUN 22 H Creatinine 0.8 Est GFR ( Amer) > 60 Est GFR (Non-Af Amer) > 60 Random Glucose 112 H Calcium 9.3 Total Bilirubin 0.7 AST 47 H D ALT 24 Alkaline Phosphatase 82 Total Protein 6.8 Albumin 4.0 Globulin 2.8 Albumin/Globulin Ratio 1.4
[2018-06-05] MEDS: Pantoprazole 80 MG in Sodium Chloride 0.9% 100 ML IVPB SCH ×3 (01:09→21:10)
[2018-06-05] MEDS: Piperacill/Tazo 3.375gm in Dex 3.375 GM/50 ML BAG IVPB SCH ×3 (05:00→17:51)
[2018-06-05] MEDS: metroNIDAZOLE IV 500 mg/100 ml 500 MG/100 ML BAG IVPB SCH ×3 (05:00→21:32)
--- NOTE | 2018-06-05 07:45 | CP.PCM.PN ---
<Darren Granados - Last Filed: 06/05/18 12:24> Subjective - Date & Time of Evaluation Date of Evaluation: 06/05/18 Time of Evaluation: 07:45 - Subjective Subjective: PGY6 GI Fellow Progress Note Patient seen and examined bedside this morning. The patient states that she is having very mild, intermittent epigastric pain. No nausea, vomiting, dizziness, lightheadedness. Has not had any bowel movements. NPO maintained post-procedure, overnight and in to this morning. 12 system ROS performed and negative except where stated Objective - Vital Signs/Intake and Output Vital Signs (last 24 hours): Temp Pulse Resp BP Pulse Ox 98.1 F 82 20 123/65 95 06/04/18 23:05 06/04/18 23:05 06/04/18 23:05 06/04/18 23:05 06/04/18 23:05 - Medications Medications: Current Medications Amlodipine Besylate (Norvasc) 10 mg PO Q24H [facility] Last Admin: 06/04/18 18:17 Dose: Not Given Piperacillin Sod/Tazobactam Sod (Zosyn 3.375 Gm Iv Premix) 3.375 gm in 50 mls @ 100 mls/hr IVPB Q6H [facility]; Protocol Last Admin: 06/05/18 05:00 Dose: 100 mls/hr Metronidazole (Flagyl) 500 mg in 100 mls @ 100 mls/hr IVPB Q8 [facility]; Protocol Last Admin: 06/05/18 05:00 Dose: 100 mls/hr Pantoprazole Sodium 80 mg/ (Sodium Chloride) 100 mls @ 10 mls/hr IVPB .Q10H [facility] Last Admin: 06/05/18 01:09 Dose: 10 mls/hr Metoprolol Tartrate (Lopressor) 50 mg PO 0600,1200 [facility] Last Admin: 06/05/18 05:15 Dose: Not Given Ondansetron HCl (Zofran Inj) 4 mg IVP Q4H PRN PRN Reason: Nausea/Vomiting Last Admin: 06/04/18 02:00 Dose: 4 mg - Labs Labs: 06/04/18 13:55 06/04/18 08:07 - Constitutional Appears: Non-toxic, No Acute Distress - Eye Exam Eye Exam: EOMI, PERRL - ENT Exam ENT Exam: Mucous Membranes Moist - Respiratory Exam Respiratory Exam: Clear to Ausculation Bilateral. absent: Rales, Rhonchi, Wheezes - Cardiovascular Exam Cardiovascular Exam: RRR, +S1, +S2 - GI/Abdominal Exam GI & Abdominal Exam: Soft, Tenderness, Normal Bowel Sounds. absent: Distended, Firm, Guarding, Rigid, Organomegaly - Extremities Exam Extremities Exam: Normal Inspection. absent: Pedal Edema - Neurological Exam Neurological Exam: Alert, Awake, Oriented x3 - Psychiatric Exam Psychiatric exam: Normal Affect, Normal Mood - Skin Skin Exam: Dry, Warm Assessment and Plan - Assessment and Plan (Free Text) Assessment: Patient is a 63yo female with PMHx significant for HTN, chronic back pain, PUD with gastric ulcer in the who presented to the hospital with 3 days of abdominal pain, nausea and vomiting -Peptic ulcer disease - Large bleeding gastric ulcer - Dereck Class IB -Nausea/vomiting/pain 2/2 above Plan: -Endoscopy yesterday revealing a large, cratered, necrotic ulcer in the prepyloric area with a visible vessel s/p Epinephrine injection and clip placement; no evidence of outflow obstruction and endoscope easily passed to duodenum -CBC slightly downtrending, continue to monitor H/H -Advance to liquid diet this morning -Stool for H pylori -No events overnight -Continue PPI gtt for 48 hours, then transition to oral therapy moving forward (40mg PO QAM) -Patient will require repeat endoscopy in one month to evaluate healing, obtain biopsies -Given family history (Mother with ZE), may benefit from AM gastrin level when OFF of PPI therapy <Zechariah Szymanski - Last Filed: 06/05/18 12:45> Objective - Vital Signs/Intake and Output Vital Signs (last 24 hours): Temp Pulse Resp BP Pulse Ox 98.2 F 91 H 20 144/60 98 06/05/18 08:00 06/05/18 12:42 06/05/18 08:00 06/05/18 12:42 06/05/18 08:00 - Medications Medications: Current Medications Amlodipine Besylate (Norvasc) 10 mg PO Q24H [facility] Last Admin: 06/04/18 18:17 Dose: Not Given Piperacillin Sod/Tazobactam Sod (Zosyn 3.375 Gm Iv Premix) 3.375 gm in 50 mls @ 100 mls/hr IVPB Q6H [facility]; Protocol Last Admin: 06/05/18 11:06 Dose: 100 mls/hr Metronidazole (Flagyl) 500 mg in 100 mls @ 100 mls/hr IVPB Q8 [facility]; Protocol Last Admin: 06/05/18 05:00 Dose: 100 mls/hr Pantoprazole Sodium 80 mg/ (Sodium Chloride) 100 mls @ 10 mls/hr IVPB .Q10H [facility] Last Admin: 06/05/18 11:06 Dose: 10 mls/hr Metoprolol Tartrate (Lopressor) 50 mg PO 0600,1200 [facility] Last Admin: 06/05/18 12:41 Dose: 50 mg Ondansetron HCl (Zofran Inj) 4 mg IVP Q4H PRN PRN Reason: Nausea/Vomiting Last Admin: 06/04/18 02:00 Dose: 4 mg - Labs Labs: 06/05/18 08:23 06/05/18 08:23 Attending/Attestation - Attestation I have personally seen and examined this patient.: Yes I have fully participated in the care of the patient.: Yes I have reviewed all pertinent clinical information, including history, physical exam and plan: Yes Notes (Text): 06/05/18 12:43 I have seen and examined patient with GI fellow. No acute events overnight, no bowel movements. She reports mild epigastric pain but denies nausea, vomiting, fever/chills. Tolerating PO liquids without difficulty. HTN Chronic back pain Abdominal pain - s/p EGD yesterday showing large pre-pyloric ulcer with visible vessel s/p injection and endoclip therapy - Liquid diet as tolerated - H/H remains stable, continue to monitor - Continue with PPI infusion therapy - Obtain stool hpylori - Patient will require repeat outpatient EGD to check healing within 2 months. Will continue to monitor patient clinical course.
[2018-06-05 08:38] LABS: HEMOGLOBIN 12.2 g/dL (11.0-16.0); MEAN CELL VOLUME 91.2 fL (81.0-99.0); MEAN CORPUSCULAR HEMOGLOBIN 32.9 pg (27.0-31.0); RBC 3.72 Mil/uL (3.80-5.20); RED CELL DISTRIBUTION WIDTH 13.5 % (11.5-14.5); WHITE BLOOD COUNT 7.9 K/uL (4.8-10.8)
[2018-06-05 09:02] LABS: ALB/GLOB RATIO 1.5 (1.0-2.1); ALBUMIN 3.9 g/dL (3.5-5.0); ALT/SGPT 29 U/L (9-52); AST/SGOT 28 U/L (14-36); BLOOD UREA NITROGEN 20 mg/dL (7-17); CALCIUM 8.9 mg/dl (8.6-10.4); GFR NON-AFRICAN AMERICAN > 60
--- NOTE | 2018-06-05 17:41 | CP.PCM.PN ---
Subjective - Date & Time of Evaluation Date of Evaluation: 06/05/18 Time of Evaluation: 09:45 - Subjective Subjective: clinically same Objective - Vital Signs/Intake and Output Vital Signs (last 24 hours): Temp Pulse Resp BP Pulse Ox 98.2 F 68 20 125/71 97 06/05/18 15:00 06/05/18 15:00 06/05/18 15:00 06/05/18 15:00 06/05/18 15:00 - Medications Medications: Current Medications Amlodipine Besylate (Norvasc) 10 mg PO Q24H [facility] Last Admin: 06/04/18 18:17 Dose: Not Given Piperacillin Sod/Tazobactam Sod (Zosyn 3.375 Gm Iv Premix) 3.375 gm in 50 mls @ 100 mls/hr IVPB Q6H [facility]; Protocol Last Admin: 06/05/18 11:06 Dose: 100 mls/hr Metronidazole (Flagyl) 500 mg in 100 mls @ 100 mls/hr IVPB Q8 [facility]; Protocol Last Admin: 06/05/18 14:25 Dose: 100 mls/hr Pantoprazole Sodium 80 mg/ (Sodium Chloride) 100 mls @ 10 mls/hr IVPB .Q10H [facility] Last Admin: 06/05/18 11:06 Dose: 10 mls/hr Metoprolol Tartrate (Lopressor) 50 mg PO 0600,1200 [facility] Last Admin: 06/05/18 12:41 Dose: 50 mg Ondansetron HCl (Zofran Inj) 4 mg IVP Q4H PRN PRN Reason: Nausea/Vomiting Last Admin: 06/04/18 02:00 Dose: 4 mg - Labs Labs: 06/05/18 08:23 06/05/18 08:23
[2018-06-05] MEDS ORDERED: Potassium Chloride 20 mEq ER Tab PO STA (21:16)
--- NOTE | 2018-06-05 22:30 | CP.PCM.CON ---
History of Present Illness - History of Present Illness History of Present Illness: dictated Past Patient History - Infectious Disease Hx of Infectious Diseases: None - Past Social History Smoking Status: Heavy Smoker > 10 Cigarettes Daily - CARDIAC Hx Hypertension: Yes - MUSCULOSKELETAL/RHEUMATOLOGICAL Hx Musculoskeletal Disorders: Yes - PSYCHIATRIC Hx Substance Use: No - SURGICAL HISTORY Hx Surgeries: No - ANESTHESIA Hx Anesthesia: No Hx Anesthesia Reactions: No Meds Allergies/Adverse Reactions: Allergies Allergy/AdvReac Type Severity Reaction Status Date / Time No Known Allergies Allergy Verified 06/03/18 14:37 - Medications Medications: Current Medications Amlodipine Besylate (Norvasc) 10 mg PO Q24H [facility] Last Admin: 06/05/18 17:52 Dose: 10 mg Piperacillin Sod/Tazobactam Sod (Zosyn 3.375 Gm Iv Premix) 3.375 gm in 50 mls @ 100 mls/hr IVPB Q6H [facility]; Protocol Last Admin: 06/05/18 17:51 Dose: 100 mls/hr Metronidazole (Flagyl) 500 mg in 100 mls @ 100 mls/hr IVPB Q8 [facility]; Protocol Last Admin: 06/05/18 21:32 Dose: 100 mls/hr Pantoprazole Sodium 80 mg/ (Sodium Chloride) 100 mls @ 10 mls/hr IVPB .Q10H [facility] Last Admin: 06/05/18 21:10 Dose: 10 mls/hr Metoprolol Tartrate (Lopressor) 50 mg PO 0600,1200 [facility] Last Admin: 06/05/18 12:41 Dose: 50 mg Ondansetron HCl (Zofran Inj) 4 mg IVP Q4H PRN PRN Reason: Nausea/Vomiting Last Admin: 06/04/18 02:00 Dose: 4 mg Results - Vital Signs Recent Vital Signs: Last Vital Signs Temp 98.2 F 06/05/18 15:00 Pulse 68 06/05/18 15:00 Resp 20 06/05/18 15:00 BP 125/71 06/05/18 15:00 Pulse Ox 97 06/05/18 15:00 - Labs Result Diagrams: 06/05/18 08:23 06/05/18 08:23 Labs: Laboratory Results - last 24 hr 06/05/18 06/05/18 06/05/18 08:23 08:23 20:25 WBC 7.9 RBC 3.72 L Hgb 12.2 Hct 33.9 L MCV 91.2 MCH 32.9 H MCHC 36.0 RDW 13.5 Plt Count 200 MPV 8.0 Sodium 135 Potassium 3.2 L Chloride 95 L Carbon Dioxide 30 Anion Gap 14 BUN 20 H Creatinine 0.8 Est GFR ( Amer) > 60 Est GFR (Non-Af Amer) > 60 Random Glucose 88 Calcium 8.9 Total Bilirubin 0.8 AST 28 ALT 29 Alkaline Phosphatase 65 Total Protein 6.6 Albumin 3.9 Globulin 2.6 Albumin/Globulin Ratio 1.5 Stool Occult Blood Positive H
[2018-06-06 00:29] LABS: SQUAMOUS EPITHIAL 2 /hpf (0-5); URINE BILIRUBIN NEGATIVE (NEGATIVE); URINE CLARITY Clear (Clear); URINE COLOR Straw (YELLOW); URINE GLUCOSE (UA) NORMAL (Normal); URINE LEUKOCYTE ESTERASE TRACE Leu/uL (Negative); URINE PROTEIN NEGATIVE (NEGATIVE); URINE UROBILINOGEN NORMAL mg/dL (0.2-1.0)
[2018-06-06] MEDS: Piperacill/Tazo 3.375gm in Dex 3.375 GM/50 ML BAG IVPB SCH ×5 (00:29→23:40)
[2018-06-06 00:37] LABS: URINE BLOOD NEGATIVE (NEGATIVE)
[2018-06-06] MEDS: metroNIDAZOLE IV 500 mg/100 ml 500 MG/100 ML BAG IVPB SCH ×3 (05:11→22:04)
[2018-06-06] MEDS: Pantoprazole 80 MG in Sodium Chloride 0.9% 100 ML IVPB SCH (06:16)
[2018-06-06 07:48] LABS: ALB/GLOB RATIO 1.5 (1.0-2.1); ALBUMIN 4.1 g/dL (3.5-5.0); ALT/SGPT 27 U/L (9-52); AST/SGOT 35 U/L (14-36); BLOOD UREA NITROGEN 10 mg/dL (7-17); CALCIUM 9.1 mg/dl (8.6-10.4); GFR NON-AFRICAN AMERICAN > 60
[2018-06-06 08:11] LABS: BASO % 0.3 % (0.0-2.0); EOS # 0.2 K/uL (0.0-0.7); EOS % 2.8 % (0.0-4.0); HEMOGLOBIN 12.5 g/dL (11.0-16.0); LYMPH # 1.3 K/uL (1.0-4.3); LYMPH % 14.7 % (20.0-40.0); MEAN CELL VOLUME 92.2 fL (81.0-99.0); MEAN CORPUSCULAR HEMOGLOBIN 32.7 pg (27.0-31.0); MEAN CORPUSCULAR HGB CONC 35.5 g/dL (33.0-37.0); MONO # 0.5 K/uL (0.0-0.8); NEUT # 6.7 K/uL (1.8-7.0); NEUT % 76.2 % (50.0-75.0); RBC 3.84 Mil/uL (3.80-5.20); RED CELL DISTRIBUTION WIDTH 13.6 % (11.5-14.5); WHITE BLOOD COUNT 8.8 K/uL (4.8-10.8)
--- NOTE | 2018-06-06 08:18 | RAD ---
Date of service: 06/06/2018 HISTORY: admission chest xray COMPARISON: No prior. FINDINGS: LUNGS: Biapical pleural thickening. Mild venous congestion. Bibasilar breast shadows. Nodular density at the left lung base may represent nipple shadow. PLEURA: No significant pleural effusion identified, no pneumothorax apparent. CARDIOVASCULAR: No atherosclerotic calcification present Normal. OSSEOUS STRUCTURES: No significant abnormalities. VISUALIZED UPPER ABDOMEN: Normal. OTHER FINDINGS: None. IMPRESSION: Biapical pleural thickening. Mild venous congestion. Bibasilar breast shadows. Nodular density at the left lung base may represent nipple shadow.
--- NOTE | 2018-06-06 08:44 | CP.PCM.PN ---
<Darren Granados - Last Filed: 06/06/18 10:54> Subjective - Date & Time of Evaluation Date of Evaluation: 06/06/18 Time of Evaluation: 08:00 - Subjective Subjective: PGY6 GI Fellow Progress Note Patient seen and examined bedside this morning. The patient had a bowel movement this morning. Difficulty inserting new IV line and thus PPI drip stopped around 6am today. She denies any pain, nausea, vomiting. Tolerating liquid diet without issue. 12 system ROS performed and negative except where stated Objective - Vital Signs/Intake and Output Vital Signs (last 24 hours): Temp Pulse Resp BP Pulse Ox 97.5 F L 60 20 118/71 96 06/06/18 07:00 06/06/18 07:00 06/06/18 07:00 06/06/18 07:00 06/06/18 07:00 Intake and Output: 06/06/18 06/06/18 06:59 18:59 Intake Total 480 Balance 480 - Medications Medications: Current Medications Amlodipine Besylate (Norvasc) 10 mg PO Q24H HUNG Last Admin: 06/05/18 17:52 Dose: 10 mg Piperacillin Sod/Tazobactam Sod (Zosyn 3.375 Gm Iv Premix) 3.375 gm in 50 mls @ 100 mls/hr IVPB Q6H HUNG; Protocol Last Admin: 06/06/18 05:11 Dose: 100 mls/hr Metronidazole (Flagyl) 500 mg in 100 mls @ 100 mls/hr IVPB Q8 HUNG; Protocol Last Admin: 06/06/18 05:11 Dose: 100 mls/hr Metoprolol Tartrate (Lopressor) 50 mg PO 0600,1200 HUNG Last Admin: 06/06/18 05:38 Dose: 50 mg Ondansetron HCl (Zofran Inj) 4 mg IVP Q4H PRN PRN Reason: Nausea/Vomiting Last Admin: 06/04/18 02:00 Dose: 4 mg Pantoprazole Sodium (Protonix Ec Tab) 40 mg PO ACB HUNG - Labs Labs: 06/06/18 07:12 06/06/18 07:12 - Constitutional Appears: Non-toxic, No Acute Distress - Eye Exam Eye Exam: EOMI, PERRL - ENT Exam ENT Exam: Mucous Membranes Moist - Respiratory Exam Respiratory Exam: Clear to Ausculation Bilateral. absent: Rales, Rhonchi, Wheezes - Cardiovascular Exam Cardiovascular Exam: RRR, +S1, +S2 - GI/Abdominal Exam GI & Abdominal Exam: Soft, Tenderness (epigastric), Normal Bowel Sounds. absent: Distended, Firm, Guarding, Rigid, Organomegaly - Extremities Exam Extremities Exam: Normal Inspection. absent: Pedal Edema - Neurological Exam Neurological Exam: Alert, Awake, Oriented x3 - Psychiatric Exam Psychiatric exam: Normal Affect, Normal Mood - Skin Skin Exam: Dry, Warm Assessment and Plan - Assessment and Plan (Free Text) Assessment: Patient is a 63yo female with PMHx significant for HTN, chronic back pain, PUD with gastric ulcer in the who presented to the hospital with 3 days of abdominal pain, nausea and vomiting -Peptic ulcer disease - Large bleeding gastric ulcer with visible vessel - Dereck Class IB -Nausea/vomiting/pain 2/2 above Plan: -S/P EGD with large, cratered, necrotic ulcer in the prepyloric area with a visible vessel - injected with Epinephrine and one endoclip placed -H/H stable -PPI gtt discontinued by nursing due to inadequate IV access this morning -Tolerating liquid diet -H pylori stool Ag collected and pending -Start Protonix 40mg PO QAM - will need to be discharged with two month supply, educated on importance of use for healing ulcer -Educated on NSAID avoidance -Patient will require repeat endoscopy within two months to check healing, obtain biopsies -Given family history (Mother with ZE), may benefit from AM gastrin level when OFF of PPI therapy -OK to D/C from GI standpoint <Jennie Bull - Last Filed: 06/06/18 14:13> Objective - Vital Signs/Intake and Output Vital Signs (last 24 hours): Temp Pulse Resp BP Pulse Ox 97.5 F L 73 20 143/85 96 06/06/18 07:00 06/06/18 12:36 06/06/18 07:00 06/06/18 12:36 06/06/18 07:00 Intake and Output: 06/06/18 06/06/18 06:59 18:59 Intake Total 480 Balance 480 - Medications Medications: Current Medications Amlodipine Besylate (Norvasc) 10 mg PO Q24H HUNG Last Admin: 06/05/18 17:52 Dose: 10 mg Piperacillin Sod/Tazobactam Sod (Zosyn 3.375 Gm Iv Premix) 3.375 gm in 50 mls @ 100 mls/hr IVPB Q6H HUNG; Protocol Last Admin: 06/06/18 12:43 Dose: 100 mls/hr Metronidazole (Flagyl) 500 mg in 100 mls @ 100 mls/hr IVPB Q8 HUNG; Protocol Last Admin: 06/06/18 13:36 Dose: 100 mls/hr Metoprolol Tartrate (Lopressor) 50 mg PO 0600,1200 HUNG Last Admin: 06/06/18 12:42 Dose: 50 mg Ondansetron HCl (Zofran Inj) 4 mg IVP Q4H PRN PRN Reason: Nausea/Vomiting Last Admin: 06/04/18 02:00 Dose: 4 mg Pantoprazole Sodium (Protonix Ec Tab) 40 mg PO ACB HUNG Last Admin: 06/06/18 08:54 Dose: 40 mg - Labs Labs: 06/06/18 07:12 06/06/18 07:12 Attending/Attestation - Attestation I have personally seen and examined this patient.: Yes I have fully participated in the care of the patient.: Yes I have reviewed all pertinent clinical information, including history, physical exam and plan: Yes Notes (Text): 06/06/18 14:11 Patient seen at bedside this am. In a nutshell this is a 63yo female with PMHx significant for HTN, chronic back pain, PUD with gastric ulcer in the who presented to the hospital with 3 days of abdominal pain, nausea and vomiting s/p EGD showing large bleeding gastric ulcer with visible vessel - Dereck Class IB. Transition IV PPI to po. Adavance diet and can be discharged. Recommend repeat EGD in 8-12 weeks
[2018-06-06] MEDS: Pantoprazole 40 mg EC Tab PO SCH (08:54)
--- NOTE | 2018-06-06 10:42 | CON ---
DATE: 06/05/2018 HISTORY OF PRESENT ILLNESS: This patient is a 63-year-old female with a history of chronic back pain, hypertension. She also has a history of gastric ulcer 29 years ago she says, has peptic ulcer disease, she presented with increased white count , also had acidosis and was deemed septic, came in with abdominal pain, also was having extensive nausea and vomiting. The pain started on Saturday night and progressively worsened in the following days and when she came to the hospital on 06/04/2018 I was going to see her before, but she was taken to EGD yesterday and so I could not see, later I noted she had a bleeding ulcer. She had severe vomiting that did not cease. She was taking her irregularly Advil and NSAID before bed for last 4-5 weeks and that may have caused this issue. CT scan showed gastritis and may have mets, but she went for EGD yesterday and she is feeling a lot better at this time and is getting IV fluids and other electrolytes. She denies any nausea and vomiting at this time. She denies any urinary symptoms at this time. She is on antibiotics as she had severe leukocytosis and I received a call from the emergency room so I changed her antibiotics from Cipro and Flagyl to Zosyn and Flagyl. SOCIAL HISTORY: She is a heavy smoker. She smokes 10 cigarettes a day. PAST MEDICAL HISTORY: Cardiac galarza, she has history of hypertension. She has joint issues, musculoskeletal disorders, lower back pain. Denies any substance abuse. Denies any surgeries. No anesthesia in the past. ALLERGIES: SHE IS NOT ALLERGIC TO ANY MEDICINE. She came in with a white count of 21.6. Her potassium was 3.4. She also had hemoconcentration with hemoglobin was 16.5. Her urine also showed a 1+ leukocytes, rbc's and wbc's and hyaline cast. She does say she came with vomiting a lot and she was taking Advil. She had an EGD with hemostasis therapy, they injected one in 10 mL to bleeding site and endoscopic clipping was done. REVIEW OF SYSTEMS: She denies any headache. Denies any ear, nose, throat problems. She denies any abdominal pain at this time. No nausea, no vomiting, no diarrhea. PHYSICAL EXAMINATION: VITAL SIGNS: T-max is 98.2, pulse 68, blood pressure 125/71, respirations are 20. HEENT: Head is atraumatic, normocephalic. Pupils are reacting to light. Tongue is moist. NECK: Supple. JVP is flat. LUNGS: Clear. HEART: S1, S2 are regular. ABDOMEN: Soft, nontender. No guarding, no rigidity at this time. EXTREMITIES: Have no edema, clubbing or cyanosis. LABORATORY DATA: She had a white count of 21.6 and it was 15.7, today it is 7.9, hemoglobin 12.2, hematocrit 33.9, platelet count is 200, neutrophils 190.3 when she came in. Stool occult blood is still positive. So, I was called in because of leukocytosis, so I covered her for sepsis. Labs are noted, now the white count has come down. Her urine culture came out positive for Streptococcus group F. She has been on Zosyn and she is on Flagyl at this time. I do not see a chest x-ray, will order that. We will repeat the urine culture tomorrow and a urinalysis again, H. Pylori is pending and will continue Zosyn for now, as she had vomiting I worry about aspiration but she has no shortness of breath, will need to just check the chest x-ray and if the UA and urine culture clears, will switch her over to a oral antibiotic. CAT scan was done and CAT scan shows severe gastric wall thickening, appear worrisome for gastritis, neoplasm cannot be excluded, correlate clinically, small hiatal esophageal wall thickening, minimal atelectasis, partially imaged lingual, diverticulosis without CT evidence of acute diverticulitis. IMPRESSION AND PLAN: This patient came in with severely increased WBC with the suspicion of sepsis, has a urinary tract infection, has a bleeding gastric ulcer and is improving and we will check the UA and urine C and S again, check the chest x-ray and then see if we can downgrade some of the antibiotics, but it is surprising that she has Streptococcus F in the urine. Eduardo Escobar MD
--- NOTE | 2018-06-06 13:57 | CP.PCM.PN ---
Subjective - Date & Time of Evaluation Date of Evaluation: 06/06/18 Time of Evaluation: 13:57 - Subjective Subjective: PATIENT SEEN AND EXAMINED AT THE BEDSIDE Objective - Vital Signs/Intake and Output Vital Signs (last 24 hours): Temp Pulse Resp BP Pulse Ox 97.5 F L 73 20 143/85 96 06/06/18 07:00 06/06/18 12:36 06/06/18 07:00 06/06/18 12:36 06/06/18 07:00 Intake and Output: 06/06/18 06/06/18 06:59 18:59 Intake Total 480 Balance 480 - Medications Medications: Current Medications Amlodipine Besylate (Norvasc) 10 mg PO Q24H HUNG Last Admin: 06/05/18 17:52 Dose: 10 mg Piperacillin Sod/Tazobactam Sod (Zosyn 3.375 Gm Iv Premix) 3.375 gm in 50 mls @ 100 mls/hr IVPB Q6H HUNG; Protocol Last Admin: 06/06/18 12:43 Dose: 100 mls/hr Metronidazole (Flagyl) 500 mg in 100 mls @ 100 mls/hr IVPB Q8 HUNG; Protocol Last Admin: 06/06/18 13:36 Dose: 100 mls/hr Metoprolol Tartrate (Lopressor) 50 mg PO 0600,1200 HUNG Last Admin: 06/06/18 12:42 Dose: 50 mg Ondansetron HCl (Zofran Inj) 4 mg IVP Q4H PRN PRN Reason: Nausea/Vomiting Last Admin: 06/04/18 02:00 Dose: 4 mg Pantoprazole Sodium (Protonix Ec Tab) 40 mg PO ACB HUNG Last Admin: 06/06/18 08:54 Dose: 40 mg - Labs Labs: 06/06/18 07:12 06/06/18 07:12 Assessment and Plan - Assessment and Plan (Free Text) Assessment: FOLLOW UP WITH DR Jeovany TRACY IN HIS OFFICE ---CALL FOR APPOINTMENT FOLLOW UP WITH DR HINES IN HIS OFFICE ---CALL FOR APPOINTMENT NEW PRESCRIPTION GIVEN PROTONIX 40 MG PO DAILY ACTIVITY TOLERATED H pylori stool Ag collected and pending - Protonix educated on importance of use for healing ulcer -Educated on NSAID avoidance - repeat endoscopy within two months to check healing, obtain biopsies CALL DR Jeovany TRACY OR GO TO THE EMERGENCY ROOM IF SYMPTOM RETURN OR WORSENING
--- NOTE | 2018-06-06 19:33 | CP.PCM.PN ---
Subjective - Date & Time of Evaluation Date of Evaluation: 06/06/18 Time of Evaluation: 15:00 - Subjective Subjective: dictated Objective - Vital Signs/Intake and Output Vital Signs (last 24 hours): Temp Pulse Resp BP Pulse Ox 98.2 F 63 20 132/77 99 06/06/18 15:00 06/06/18 15:00 06/06/18 15:00 06/06/18 15:00 06/06/18 15:00 - Medications Medications: Current Medications Amlodipine Besylate (Norvasc) 10 mg PO Q24H HUNG Last Admin: 06/06/18 17:47 Dose: 10 mg Piperacillin Sod/Tazobactam Sod (Zosyn 3.375 Gm Iv Premix) 3.375 gm in 50 mls @ 100 mls/hr IVPB Q6H HUNG; Protocol Last Admin: 06/06/18 17:46 Dose: 100 mls/hr Metronidazole (Flagyl) 500 mg in 100 mls @ 100 mls/hr IVPB Q8 HUNG; Protocol Last Admin: 06/06/18 13:36 Dose: 100 mls/hr Metoprolol Tartrate (Lopressor) 50 mg PO 0600,1200 HUNG Last Admin: 06/06/18 12:42 Dose: 50 mg Ondansetron HCl (Zofran Inj) 4 mg IVP Q4H PRN PRN Reason: Nausea/Vomiting Last Admin: 06/04/18 02:00 Dose: 4 mg Pantoprazole Sodium (Protonix Ec Tab) 40 mg PO ACB HUNG Last Admin: 06/06/18 08:54 Dose: 40 mg - Labs Labs: 06/06/18 07:12 06/06/18 07:12
--- NOTE | 2018-06-06 19:57 | PN ---
DATE: 06/06/2018 SUBJECTIVE: The patient was seen today. She says she was having back pains, and when she came in, denied any urinary symptoms. However, I told her, her urine culture came out positive for Streptococcus group G, and she also had high WBC count and sepsis picture when she came in. OBJECTIVE: VITAL SIGNS: T-max was 98.2, pulse 63, blood pressure 132/77, respirations are 20. HEENT: Head is atraumatic, normocephalic. NECK: Supple. ABDOMEN: She denies any abdominal pain right now. HEART: S1, S2 regular. ABDOMEN: Soft, nontender. No guarding. No rigidity present. EXTREMITIES: Have no edema. She is thankful that her numbers are better. White count is 8.8, hemoglobin 12.5, hematocrit 35.4, platelet count is 196, BUN is 10, creatinine is 0.8. UA is negative. Her urine culture was positive for group F Streptococcus so I told her to have a UNHAIRING MACHINE OPERATOR eval also soon, and as Streptococcus is mostly found in the UNHAIRING MACHINE OPERATOR, we will give her amoxicillin 500 three times daily for 5 days to cover for UTI, and she is clear from ID point. She came in with GI bleeding and had bleeding ulcer and is being followed by GI. Her WBC count has decreased, and she is looking much better. Eduardo Escobar MD
--- NOTE | 2018-06-06 22:25 | CP.PCM.PN ---
Subjective - Date & Time of Evaluation Date of Evaluation: 06/06/18 Time of Evaluation: 08:30 - Subjective Subjective: clinically same Objective - Vital Signs/Intake and Output Vital Signs (last 24 hours): Temp Pulse Resp BP Pulse Ox 98.2 F 63 20 132/77 99 06/06/18 15:00 06/06/18 15:00 06/06/18 15:00 06/06/18 15:00 06/06/18 15:00 - Medications Medications: Current Medications Amlodipine Besylate (Norvasc) 10 mg PO Q24H HUNG Last Admin: 06/06/18 17:47 Dose: 10 mg Piperacillin Sod/Tazobactam Sod (Zosyn 3.375 Gm Iv Premix) 3.375 gm in 50 mls @ 100 mls/hr IVPB Q6H HUNG; Protocol Last Admin: 06/06/18 17:46 Dose: 100 mls/hr Metronidazole (Flagyl) 500 mg in 100 mls @ 100 mls/hr IVPB Q8 HUNG; Protocol Last Admin: 06/06/18 22:04 Dose: 100 mls/hr Metoprolol Tartrate (Lopressor) 50 mg PO 0600,1200 HUNG Last Admin: 06/06/18 12:42 Dose: 50 mg Ondansetron HCl (Zofran Inj) 4 mg IVP Q4H PRN PRN Reason: Nausea/Vomiting Last Admin: 06/04/18 02:00 Dose: 4 mg Pantoprazole Sodium (Protonix Ec Tab) 40 mg PO ACB HUNG Last Admin: 06/06/18 08:54 Dose: 40 mg - Labs Labs: 06/06/18 07:12 06/06/18 07:12
[2018-06-07] MEDS: Piperacill/Tazo 3.375gm in Dex 3.375 GM/50 ML BAG IVPB SCH (04:57)
[2018-06-07] MEDS: metroNIDAZOLE IV 500 mg/100 ml 500 MG/100 ML BAG IVPB SCH (05:36)
[2018-06-07] MEDS: Pantoprazole 40 mg EC Tab PO SCH (06:39)
[2018-06-07 07:34] VITALS: BP 108/60; PULSE 68; TEMP 97.8; O2SAT 95
[2018-06-07 07:57] LABS: BASO % 0.2 % (0.0-2.0); EOS # 0.2 K/uL (0.0-0.7); EOS % 2.4 % (0.0-4.0); HEMOGLOBIN 12.3 g/dL (11.0-16.0); LYMPH # 1.1 K/uL (1.0-4.3); LYMPH % 15.1 % (20.0-40.0); MEAN CELL VOLUME 91.5 fL (81.0-99.0); MEAN PLATELET VOLUME 8.3 fL (7.2-11.7); MONO # 0.4 K/uL (0.0-0.8); MONO % 6.1 % (0.0-10.0); NEUT # 5.6 K/uL (1.8-7.0); NEUT % 76.2 % (50.0-75.0); NRBC % 0.1 % (0.0-2.0); RBC 3.86 Mil/uL (3.80-5.20); RED CELL DISTRIBUTION WIDTH 13.1 % (11.5-14.5); WHITE BLOOD COUNT 7.3 K/uL (4.8-10.8)
[2018-06-07 08:49] LABS: ALB/GLOB RATIO 1.4 (1.0-2.1); ALBUMIN 3.7 g/dL (3.5-5.0); ALT/SGPT 30 U/L (9-52); AST/SGOT 27 U/L (14-36); BLOOD UREA NITROGEN 9 mg/dL (7-17); GFR NON-AFRICAN AMERICAN > 60
== END 2018-06-07 11:00 | disposition home or self-care (01) ==
LOC: C.ER 13:48 → C.9E 18:05 → C.5S 21:33
PROVIDERS: ADMIT Internal Medicine Nephrology; ATTEND Internal Medicine Nephrology
DX: K25.4 Chronic or unspecified gastric ulcer with hemorrhage (principal); K29.70 Gastritis, unspecified, without bleeding; K22.10 Ulcer of esophagus without bleeding; I10 Essential (primary) hypertension; F17.210 Nicotine dependence, cigarettes, uncomplicated; E87.2 Acidosis; K44.9 Diaphragmatic hernia without obstruction or gangrene; D72.829 Elevated white blood cell count, unspecified
CPT/HCPCS: 36415; 43255; 71045; 74177; 80053; 81001; 83690; 83735; 84100; 85025; 85027; 85651; 87040; 87086; 87338; 96361; 96365; 96366; 96367; 96368; 96375; 96376; 99285; C9113; G0328; G0378; J0171; J0744; J1885; J2001; J2405; J2543; J2704; J3480; J7030; Q9967